=== PATIENT | female | born 1955 | race Caucasian/White ===

== ENCOUNTER 2019-11-29 08:24 | Outpatient (CLI) | payer MEDICARE, SELFPAY ==
[2019-11-29 10:38] LABS: Basophils Percent Auto 0.3 % (0.2-1.2); Eosinophils Percent Auto 0.1 % (0-4.4); Hematocrit 39.5 % (37.0-47.0); Hemoglobin 12.9 g/dL (12.0-15.0); Immature Granulocyte Absolute 0.43 K/mm3 (0.00-0.031); Immature Granulocyte Percent A 2.9 % (0-0.5); Lymphocytes Absolute Auto 2.74 K/mm3 (0.9-3.2); Lymphocytes Percent Auto 18.4 % (18.3-44.2); Mean Corpuscular HGB Conc 32.7 g/dl (32-36); Mean Corpuscular Volume 88.8 fl (80-100); Mean Platelet Volume 9.3 fl (7.4-10.4); Monocytes Absolute Auto 1.6 K/mm3 (0.1-0.6); Monocytes Percent Auto 10.6 % (2.6-8.5); Neutrophils Absolute Auto 10.1 K/mm3 (1.3-6.7); Neutrophils Percent Auto 67.7 % (45.5-73.1); Platelet Count Result 409 k/mm3 (150-375); Red Blood Count 4.45 M/mm3 (4.2-5.4); Red Cell Distribution Width 12.5 % (11.5-14.5); White Blood Count 14.9 K/mm3 (4.5-10.0)
[2019-11-29 11:02] LABS: LDL Cholesterol Direct 209 mg/dL
[2019-11-29 11:21] LABS: Total Triiodothyronine (T3) 0.76 NG/ML (0.97-1.69)
[2019-11-29 11:34] LABS: Creatinine Urine 154.6 mg/dL
[2019-11-29 11:50] LABS: Free T4 Free Thyroxine 0.91 ng/mL (0.78-2.19); Vitamin D 25 Hydroxy 17.3 ng/mL
[2019-11-29 12:19] LABS: MALB Creatinine Ratio 156.3 mg/g (0-30); Microalbumin Urine Random 241.6 mg/L (0-16.7)
[2019-11-29 12:42] LABS: Alanine Aminotransferase 19 U/L (4-35); Albumin Level 4.6 g/dL (3.5-5.1); Alkaline Phosphatase 124 U/L (38-126); Anion Gap 7 mmol/L (8-16); Aspartate Amino Transferase 20 U/L (14-36); Bilirubin,Total 0.4 mg/dL (0.2-1.3); Blood Urea Nitrogen 27 mg/dL (7-17); Calcium 10.2 mg/dL (8.4-10.2); Carbon Dioxide 33 mmol/L (22-30); Chloride 96 mmol/L (98-107); Estimated Glomerular Filt Rate > 60; Glucose 132 mg/dL (65-105); HDL Direct 89 mg/dL; Potassium 3.8 mmol/L (3.4-5.0); Sodium 136 mmol/L (137-145); Triglycerides 342 mg/dL (<150)
[2019-11-29 13:07] LABS: Cholesterol 363 mg/dL (0-200)
--- NOTE | 2019-12-06 16:24 | WPDHOLTEREM ---
Holter/Event Monitor Holter/Event Monitor Date of procedure: 12/06/19 Procedure Type: 48 hour Holter monitor Diagnosis: tachycardia Indications: tachycardia Image/Tracing Quality: good Finding: this is a 48 hour Holter monitor report in which the underlying rhythm was sinus rhythm with an elevated average heart rate 94 beats per minute minimum of 63 beats per minute occurring at 2:01 a.m. and a maximum 162 beats per minute occurring at 7:19 a.m.. Occasional premature ventricular contractions totaling 405 (0.2%) and 1477 supraventricular ectopic beats with 1396 premature atrial contractions. There were at least 2 episodes of SVT with information submitted for review occurring at 11/29/19 at 1004, 11/30/19 at 0719 with HR up to 158bpm and 162bpm, respectively. No symptoms returned in conjunction with this study. there is no clear atrial fibrillation and/or atrial flutter noted. No prolonged pauses or high-grade AV blocks identified. There is a first-degree AV block noted throughout with preserved QRS duration. Conclusion: Underlying sinus rhythm with 2 episodes of SVT as noted above in which no symptoms were reported. Occasional premature atrial contractions and no identified atrial fibrillation and/or atrial flutter noted. No prolonged pauses or high-grade AV blocks. Clinical correlation advised.
== END 2019-11-29 08:25 | disposition home or self-care (01) ==
PROVIDERS: PCP Family Medicine; Referring Provider Nurse Practitioner; Visit Provider Family Medicine
DX: R00.0 Tachycardia, unspecified (principal); I10 Essential (primary) hypertension; R00.2 Palpitations; E78.2 Mixed hyperlipidemia; E55.9 Vitamin D deficiency, unspecified
CPT/HCPCS: 36415; 80053; 80061; 82043; 82306; 84439; 84443; 84480; 85025; 93225; 93226